=== PATIENT | female | born 1955 | race Caucasian/White ===

== ENCOUNTER 2023-09-06 10:01 | Outpatient (AMB) | payer MEDICARE, SELFPAY ==
[2023-09-06 10:01] VITALS: BP 130/70; PULSE 83; TEMP 36.4; O2SAT 98; BMI 23.8
--- NOTE | 2023-09-06 10:01 | AM.OFFWIN_ITS ---
Intake Vital Signs 3 09/06/23 10:01 Height 5 ft 1 in Weight 126 lb BMI 23.8 BP 130/70 Blood Pressure Location Lt brachial Position Sitting Pulse 83 Pulse Source Pulse Oximeter Temp 97.6 F Temp Source Temporal Artery Scan Pulse Oximetry (%) 98 Oxygen Delivery Method Room Air Intake Visit Reasons: EP Rash neck lft side Intake Note: Pt is here c/o rash on the left side of her neck. Pt states she has had it for about one week. Patient Tobacco Use Status: Never used Tobacco Allergies No Known Allergies Allergy (Verified 09/06/23 10:04) HPI HPI Comments 2 History of Present Illness0 Details Patient is a 67-year-old female in today for a sick visit. She states that she noticed a rash developed on the left side of her neck 2 in inferior to the her hairline. She 1st noticed the rest after a series of stressful life events. She states that there is pain and itchiness, and she has gotten little relief with hydrocortisone cream. She denies recent fever or shortness of breath. Patient has rash slightly raised, no fluid, group of vesicles. There is also a small similar developing rash at the base of the patient's hairline. No bleeding, no flaking. Patient likely has herpes zoster. Unlikely to be necrotizing infection. Patient will be given valacyclovir for 7 days. Will also be given topical steroid. Patient has been educated on signs of worsening symptoms and when to return to the walk-in clinic and when to present to the ER [facility] Medical History (Updated 09/06/23 @ 11:11 by MIKE Isbell) Herpes zoster Social History Patient Tobacco Use Status: Never used Tobacco Review of Systems Const All systems reviewed & are unremarkable except as noted in HPI and below Skin/Breast Reports as per HPI and Reports rash Physical Exam Vital Signs: Last Vital Signs Temp 97.6 F 09/06/23 10:01 Pulse 83 09/06/23 10:01 BP 130/70 09/06/23 10:01 Pulse Ox 98 09/06/23 10:01 Oxygen Delivery Method Room Air 09/06/23 10:01 BMI result Body Mass Index 23.8 Vital signs reviewed and stable Appearance: Alert.? Oriented X3.? No acute distress.? Head: Normocephalic, atraumatic Eyes: Pupils equal, round and reactive to light.? Neck: Normal inspection.? Neck supple.? Skin: Skin warm and dry.? Erythema, raised, vesicles. ? Neuro: Oriented X 3.? Assessment & Plan Assessment & Plan (1) Herpes zoster: Comment: Patient will be given valacyclovir for 7 days, and topical hydrocortisone cream. Code(s): B02.9 - Zoster without complications Qualifiers: Herpes zoster complications: without complications Qualified Code(s): B 02.9 - Zoster without complications Medications: New 2 valacyclovir 1,000 mg PO BID 14 tabs 0RF hydrocortisone 1% (Cortisone (hydrocortisone)) 1 appl topical BID PRN 28.35 grams 0RF skin irritation Coding Level of Care Code New Pt Level 4 (02814) Diagnoses Herpes zoster without complication B02.9 Herpes zoster complications: without complications Time Spent (min) 20
== END 2023-09-06 10:50 | disposition home or self-care (01) ==
PROVIDERS: PCP Internal Medicine; Visit Provider Nurse Practitioner Primary Care
DX: B02.9 Zoster without complications (principal)
CPT/HCPCS: 99204